=== PATIENT | male | born 1970 ===

== ENCOUNTER 2021-04-02 19:38 | Emergency (ER) | payer OTHER ==
[~2021-04-02] VITALS: Ht 167.6 cm; Wt 80.7 kg
== END 2021-04-02 21:58 | disposition home or self-care (01) ==
LOC: ER 19:38
DX: M94.0 Chondrocostal junction syndrome [Tietze] (principal)

== ENCOUNTER 2021-06-19 14:03 | Emergency (ER) | payer OTHER ==
[~2021-06-19] VITALS: Ht 167.6 cm; Wt 85.3 kg
[2021-06-19] MEDS ORDERED: NORFLEX100MG PO (18:47)
[2021-06-19] MEDS ORDERED: KETO10TA2 PO (18:47)
== END 2021-06-19 19:31 | disposition home or self-care (01) ==
LOC: ER 14:03
DX: R78.9 Finding of unspecified substance, not normally found in blood (principal); R11.0 Nausea; R42 Dizziness and giddiness; M94.0 Chondrocostal junction syndrome [Tietze]; Z03.818 Encounter for observation for suspected exposure to other biological agents ruled out